=== PATIENT | female | born 1975 | race Caucasian/White ===

== ENCOUNTER 2024-12-19 10:45 | Day surgery (SDC) | payer OTHER ==
[~2024-12-19] VITALS: Ht 149.9 cm; Wt 78.2 kg
[~2024-12-19 10:45] MED LIST: CEFAZOLIN SODIUM 2 GM/20 ML SYR IV SCH; IBLOOD GLUCOSE TEST STRIP 1 EA TEST VI PRN; LACTATED RINGER'S 1,000 ML IV SCH; LIDOCAINE HCL 1% 5 ML SDV INJ ONE
[2024-12-19 11:06] VITALS: BP 131/67
--- NOTE | 2024-12-19 11:23 | NUR ---
DAD IN WAITING AREA.
--- NOTE | 2024-12-19 12:14 | NUR ---
arrived with splint/brace l hand.
[2024-12-19] MEDS ORDERED: LIDOCAINE HCL 2% 20 MG/ML VIAL INJ ONE (12:59)
[2024-12-19] MEDS ORDERED: Ropivacaine HCl 0.5% 30 ML VIAL ONE (12:59)
[2024-12-19] MEDS ORDERED: HYDROCODONE/ACETA 7.5/325 TAB PO PRN (13:00)
[2024-12-19] MEDS ORDERED: MIDAZOLAM HCL 2 MG/2 ML VIAL ONE (13:00)
[2024-12-19] MEDS ORDERED: DEXAMETHASONE SOD PHOS 4 MG/ML VIAL ONE (13:34)
[2024-12-19] MEDS ORDERED: KETOROLAC TROMETHAMINE 30 MG/ML VIAL ONE (13:44)
[2024-12-19] MEDS ORDERED: HYDROCODON-ACE1 EA11 PO (13:54)
--- NOTE | 2024-12-19 14:10 | NUR ---
12/19/24 1410 Tonya Pate LE 1400: PT ARRIVES TO PACU SLEEPY, BUT RESPONDS TO STIMULI. LE 1406: PT WAKES UP AND IS ABLE TO ANSWER QUESTIONS APPROPRIATELY.
[2024-12-19 14:35] VITALS: BP 114/50
--- NOTE | 2024-12-19 14:41 | NUR ---
HAS RETURNED AWAKE CALL LIGHT AT SIDE. NO QUESTIONS.
[2024-12-19 15:42] VITALS: BP 141/68
--- NOTE | 2024-12-19 16:02 | NUR ---
PT HAS TAKEN WATER AND CRACKERS. AMB TO BR AND VOIDS QS. DC INSTRUCTIONS EXPLAINED AND COPY GIVEN COMPUTER PRINT OUT INSTRUCTIONS GIVEN AND REVIEWED NO QUESTIONS. DAD HERE TO TAKE PT HOME.
--- NOTE | 2024-12-20 06:49 | OR ---
[facility] [address] [facility] [facility] [place] [address] Signed DATE OF OPERATION: 12/19/2024 SURGEON: Gini Coker MD PREOPERATIVE DIAGNOSIS: Torres fracture, left thumb. POSTOPERATIVE DIAGNOSIS: Torres fracture, left thumb. PROCEDURE PERFORMED: Closed reduction and percutaneous pinning, left thumb metacarpal. RELATIONSHIP SPECIALIST: None. ANESTHESIA: General. BLOOD LOSS: None. IMPLANTS: 1.25 K-wires x3. BRIEF HISTORY: Yvonne is a 49-year-old female with pain in her thumb after an injury. She had radiographs which showed a displaced angulated Torres fracture. Risks and benefits of operative treatment were discussed with her, and she elected to proceed. DETAILS OF PROCEDURE: Once consent was obtained, she was taken to the operating room. After adequate anesthesia, she was placed on the day surgery bed, and the arm was prepped and draped in a standard sterile fashion. Closed reduction was performed over the C-arm and held in position. 1.25 K-wire was placed from the distal end of the metacarpal across the fracture engaging the base, second was placed from the base of the metacarpal again crossing the fracture and engaging the metacarpal shaft, third was then again placed from distal to proximal. Anatomic reduction and good placement of the pins were then confirmed, and the pins were cleansed, cut, and Jurgan balls were applied. The wounds were dressed with Allevyn dressing, sterile cast padding, and a thumb spica splint. She Electronically Signed By: GINI COKER MD 12/20/24 0649 PATIENT NAME: YVONNE ROJO OPERATIVE REPORT DATE OF : 73 REPORT #: [id number] PHYSICIAN: GINI COKER MD PCP: NO PRIMARY CARE PHYSICIAN REPORT IS CONFIDENTIAL AND NOT TO BE RELEASED WITHOUT AUTHORIZATION [address] [place], [place] [address] Signed tolerated the procedure well. All sponge, needle, and instrument counts were correct. Gini Coker MD BA/MODL /[id number] Copies: ~ Electronically Signed By: GINI COKER MD 12/20/24 0649 PATIENT NAME: YVONNE ROJO OPERATIVE REPORT DATE OF : 73 REPORT #: [id number] PHYSICIAN: GINI COKER MD PCP: NO PRIMARY CARE PHYSICIAN REPORT IS CONFIDENTIAL AND NOT TO BE RELEASED WITHOUT AUTHORIZATION
== END 2024-12-19 15:50 | disposition home or self-care (01) ==
LOC: DS 10:45
PROVIDERS: ATTEND Specialist
PROC: 0PSQ34Z Reposition Left Metacarpal with Internal Fixation Device, Percutaneous Approach (ICD-10-PCS; principal; 2024-12-19 15:15)
DX: S62.212A Bennett's fracture, left hand, initial encounter for closed fracture (principal); W19.XXXA Unspecified fall, initial encounter; Y92.524 Gas station as the place of occurrence of the external cause
CPT/HCPCS: 01820; 73140; 76942; 84703; J0690; J1100; J1885; J2250; J2704; J2795; J7121